=== PATIENT | male | born 1970 | race Caucasian/White ===

== ENCOUNTER → 2017-03-21 | Outpatient (REF) ==
[~2017-03-21] MED LIST: LISI40TAB PO; LISI5TAB PO; NEXI20CA PO; OMEP20CA3 PO; PAXI20TA3 PO; PRAZ2CAP PO; TRAZ100T2 PO; TRAZ50TA2 PO
--- NOTE | 2017-03-22 01:49 | REP ---
Clinical: Pain and disability. Technique: AP, lateral, coned-down views of the lumbosacral spine. Findings: Alignment and lordosis maintained. No acute fracture / compression injury or subluxation. Mild/moderate multilevel degenerative changes include subtle endplate sclerosis and early marginal spurring. Impression: Mild multilevel age-related degenerative change. No evidence for acute or healed fracture/compression injury. No subluxation. Signed by Fausto Nuno MD 03/22/2017 01:41 A
--- NOTE | 2017-03-22 02:04 | REP ---
Clinical: Pain and disability . Technique: Internal rotation, external rotation, and Y view left shoulder . Findings: No acute fracture or dislocation. The acromioclavicular and glenohumeral joints are intact. Mild age-related changes are appreciated without overt arthritic findings. Sub acromial space is normal. Surrounding soft tissues are unremarkable. Impression: Normal age-appropriate left shoulder radiographs. Signed by Fausto Nuno MD 03/22/2017 01:54 A
== END ==
LOC: M SMT 10:28
PROVIDERS: ATTEND Internal Medicine
DX: Z02.71 Encounter for disability determination (principal); M51.37 Other intervertebral disc degeneration, lumbosacral region

== ENCOUNTER 2024-01-18 21:34 | Emergency (ER) | payer OTHER ==
[~2024-01-18] VITALS: Ht 162.6 cm; Wt 106.5 kg
[~2024-01-18 21:34] MED LIST changes: +LISI40TA52 PO; -LISI40TAB PO
[2024-01-18] MEDS: NITROGLYCERIN 0.4MG SUBL TABLET SL PRN (22:00)
[2024-01-18 22:09] LABS: BASO # 0.1 10^3/uL (0.0-0.2); BASO % 0.7 % (0.0-1.0); EOS # 0.1 10^3/uL (0.0-0.5); HEMATOCRIT 46.3 % (42.0-52.0); LYMPH # 2.3 10^3/uL (1.5-5.0); LYMPH % 21.5 % (24.0-44.0); MEAN CORPUSCULAR HGB CONC 34.6 g/dl (32.0-36.5); MEAN CORPUSCULAR VOLUME 89.7 fl (80.0-96.0); MONO # 0.8 10^3/uL (0.0-0.8); MONO % 7.3 % (2.0-8.0); NEUTROPHILS # 7.2 10^3/uL (1.5-8.5); NEUTROPHILS % 68.7 % (36.0-66.0); PLATELET COUNT, AUTOMATED 172 10^3/uL (150-450); RED BLOOD COUNT 5.16 10^6/uL (4.30-6.10); WHITE BLOOD COUNT 10.5 10^3/uL (4.0-10.0)
[2024-01-18 22:23] LABS: BLOOD UREA NITROGEN 13 MG/DL (9-23); CALCIUM LEVEL 9.2 MG/DL (8.5-10.1); CARBON DIOXIDE LEVEL 27 MMOL/L (20-31); CHLORIDE LEVEL 105 MMOL/L (98-107); CPK CREATINE PHOSPHOKINASE 153 U/L (46-171); CREATININE FOR GFR 1.05 MG/DL (0.70-1.30); GLOMERULAR FILTRATION RATE > 60.0 (>56); GLUCOSE, FASTING 238 MG/DL (60-100); MB/CK RELATIVE INDEX 3.26 (< OR =4); POTASSIUM SERUM 4.4 MMOL/L (3.5-5.1); SODIUM LEVEL 138 MMOL/L (136-145)
[2024-01-18 22:28] LABS: INR 1.02; PARTIAL THROMBOPLASTIN TIME 25.9 SECONDS (24.8-34.2); PROTHROMBIN TIME 13.1 SECONDS (12.5-14.5)
[2024-01-18] MEDS: ONDANSETRON 4MG 2ML VIAL IV ONE (22:45)
[2024-01-18] MEDS: MORPHINE 4 MG/ML 1ML VIAL IV PRN (22:45)
[2024-01-18] MEDS ORDERED: HEPARIN SOD (PORCINE) 5000UNITS/ML 1ML VIAL/SYRINGE IV PRN (22:50)
[2024-01-18] MEDS: HEPARIN DRIP 25,000 UNITS in IV 1 EA IV SCH (22:59)
[2024-01-18 23:03] VITALS: BP 148/81
[2024-01-18] MEDS: NITROGLYCERIN 2% OINT 1 GM *U/D* PKT TOP ONE (23:03)
[2024-01-18] MEDS: HEPARIN SOD (PORCINE) 5000UNITS/ML 1ML VIAL/SYRINGE IV ONE (23:03)
[2024-01-18 23:26] VITALS: TEMP 98.9
[2024-01-19 00:02] VITALS: BP 169/97; O2SAT 98
[2024-01-19 00:21] LABS: CK-MB VALUE MASS 7.5 NG/ML (<3.6)
[2024-01-19 00:23] LABS: MB/CK RELATIVE INDEX 4.31 (< OR =4)
== END 2024-01-19 00:06 | disposition short-term general hospital (02) ==
LOC: EDBD 21:34 → M ED 21:34
DX: I21.4 Non-ST elevation (NSTEMI) myocardial infarction (principal); F41.1 Generalized anxiety disorder; F41.0 Panic disorder [episodic paroxysmal anxiety]; F17.200 Nicotine dependence, unspecified, uncomplicated
CPT/HCPCS: 71045; 80047; 80048; 82550; 82553; 84484; 85025; 85610; 85730; 93005; 93041; 94760; 96374; 96375; 96376; 99285; J2405

== ENCOUNTER 2024-05-18 08:53 | Emergency (ER) | payer OTHER ==
[~2024-05-18] VITALS: Ht 170.2 cm; Wt 79.1 kg
[2024-05-18] MEDS: ASPIRIN 81MG CHEW TABLET PO ONE (09:25)
[2024-05-18 09:35] VITALS: BP 118/66
[2024-05-18] MEDS: NITROGLYCERIN 0.4MG SUBL TABLET SL PRN (09:35)
[2024-05-18 09:39] LABS: BASO # 0.1 10^3/uL (0.0-0.2); BASO % 0.6 % (0.0-1.0); EOS # 0.1 10^3/uL (0.0-0.5); EOS % 1.3 % (0.0-3.0); HEMATOCRIT 45.9 % (42.0-52.0); HEMOGLOBIN 15.3 g/dl (13.5-17.5); LYMPH # 2.7 10^3/uL (1.5-5.0); LYMPH % 27.3 % (24.0-44.0); MEAN CORPUSCULAR HEMOGLOBIN 29.4 pg (27.0-33.0); MEAN CORPUSCULAR HGB CONC 33.3 g/dl (32.0-36.5); MEAN CORPUSCULAR VOLUME 88.1 fl (80.0-96.0); MONO # 0.9 10^3/uL (0.0-0.8); NEUTROPHILS # 6.1 10^3/uL (1.5-8.5); NEUTROPHILS % 61.4 % (36.0-66.0); PLATELET COUNT, AUTOMATED 160 10^3/uL (150-450); RED BLOOD COUNT 5.21 10^6/uL (4.30-6.10); WHITE BLOOD COUNT 9.9 10^3/uL (4.0-10.0)
[2024-05-18 09:55] LABS: BLOOD UREA NITROGEN 23 MG/DL (9-23); CALCIUM LEVEL 9.1 MG/DL (8.5-10.1); CARBON DIOXIDE LEVEL 26 MMOL/L (20-31); CHLORIDE LEVEL 107 MMOL/L (98-107); CK-MB VALUE MASS 3.4 NG/ML (<3.6); CPK CREATINE PHOSPHOKINASE 132 U/L (46-171); CREATININE FOR GFR 0.87 MG/DL (0.70-1.30); GLOMERULAR FILTRATION RATE > 60.0 (>56); GLUCOSE, FASTING 167 MG/DL (60-100); MB/CK RELATIVE INDEX 2.57 (< OR =4); SODIUM LEVEL 136 MMOL/L (136-145)
[2024-05-18 10:33] LABS: LIPASE 50 U/L (12-53)
[2024-05-18 10:35] LABS: ALBUMIN 3.7 G/DL (3.2-5.2); ALKALINE PHOSPHATASE 114 U/L (46-116); ALT/SGPT 25 U/L (7.0-40); AST/SGOT 17 U/L (<34); BILIRUBIN,DIRECT 0.2 MG/DL (<0.4); BILIRUBIN,TOTAL 0.4 MG/DL (0.3-1.2); TOTAL PROTEIN 6.7 G/DL (5.7-8.2)
[2024-05-18] MEDS: HEPARIN SOD (PORCINE) 5000UNITS/ML 1ML VIAL/SYRINGE IV ONE (10:42)
[2024-05-18] MEDS: HEPARIN DRIP 25,000 UNITS in IV 1 EA IV SCH (10:51)
[2024-05-18 11:17] LABS: CK-MB VALUE MASS 3.9 NG/ML (<3.6)
[2024-05-18 11:18] LABS: MB/CK RELATIVE INDEX 3.48 (< OR =4)
[2024-05-18] MEDS ORDERED: D200CAP PO (11:34)
[2024-05-18] MEDS ORDERED: EZET10TA21 PO (11:34)
[2024-05-18] MEDS ORDERED: ATOR80TA59 PO (11:34)
[2024-05-18] MEDS ORDERED: METF-838 PO (11:34)
[2024-05-18] MEDS ORDERED: CLOP75TA2 PO (11:34)
[2024-05-18] MEDS ORDERED: RANO500T2 PO (11:34)
[2024-05-18] MEDS ORDERED: NITR4TASL SL (11:34)
[2024-05-18] MEDS ORDERED: CARV6.25 PO (11:34)
[2024-05-18] MEDS ORDERED: HOME MED LIST COMPLETE! XX SCH (11:35)
[2024-05-18 13:36] VITALS: BP 116/65; TEMP 97.3; O2SAT 97
== END 2024-05-18 13:38 | disposition short-term general hospital (02) ==
LOC: EDBD 08:53 → M ED 08:53 → EDSEX 08:53 → M ED 13:38
DX: I21.4 Non-ST elevation (NSTEMI) myocardial infarction (principal); R00.1 Bradycardia, unspecified; I25.2 Old myocardial infarction; E11.9 Type 2 diabetes mellitus without complications; F31.9 Bipolar disorder, unspecified; F32.A Depression, unspecified; F17.210 Nicotine dependence, cigarettes, uncomplicated; Z79.84 Long term (current) use of oral hypoglycemic drugs; Z79.899 Other long term (current) drug therapy